=== PATIENT | male | born 1965 | race Two or more races ===

== ENCOUNTER 2018-10-06 16:54 | Emergency (ER) | payer SELFPAY ==
[~2018-10-06] VITALS: Ht 170.2 cm; Wt 89.9 kg
[2018-10-06 17:01] VITALS: BP 145/95
[2018-10-06] MEDS ORDERED: INSULIN GLARGINE 100 UNITS/ML, PEN SQ-INSULIN ONE (18:00)
--- NOTE | 2018-10-06 18:04 | NUR ---
Patient/Caregiver given discharge instructions and they have confirmed that they understand the instructions. Patient ambulatory with steady gait.
== END 2018-10-06 18:08 | disposition home or self-care (01) ==
LOC: ED 18:02
DX: E11.65 Type 2 diabetes mellitus with hyperglycemia (principal); I25.2 Old myocardial infarction; F17.200 Nicotine dependence, unspecified, uncomplicated; Z79.84 Long term (current) use of oral hypoglycemic drugs
CPT/HCPCS: 82962; 96372; 99283; J1815